=== PATIENT | female | born 1955 | race Caucasian/White ===

== ENCOUNTER 2019-03-29 08:50 | Day surgery (SDC) | payer OTHER ==
[~2019-03-29] VITALS: Ht 165.1 cm; Wt 79.4 kg
[~2019-03-29 08:50] MED LIST: EZFE 200200 MG PO; THEREMS-M1 TAB PO
[2019-03-29 09:38] LABS: HEMATOCRIT 37.3 % (36.0-48.0); HEMOGLOBIN 12.2 g/dL (12-16); MCH 29.3 pg (26.0-34.0); MCHC 32.7 g/dL (31.0-37.0); MCV 89.4 fL (80.0-100.0); MEAN PLATELET VOLUME 9.3 fL (7.4-10.4); RBC 4.17 10x6/uL (4.00-5.40); RDW 12.4 % (11.5-14.5); WBC 5.5 10x3/uL (4.8-10.8)
[2019-03-29] MEDS ORDERED: CYANOCOBAL1000 MCG/4 SC (11:27)
[2019-03-29 11:28] VITALS: BP 109/62; Ht 165.1 cm; Wt 79.4 kg
--- NOTE | 2019-04-16 09:04 | OP ---
PATIENT NAME: LEATHA CHATTERJEE MEDICAL RECORD: [id number] :55 LOCATION:D.OPS ADMISSION DATE: SURGEON: SARA RIOS DATE OF OPERATION: 03/29/2019 SURGEON: Sara Rios DPM PREOPERATIVE DIAGNOSES: 1. Hallux abductovalgus, right foot. 2. Tailor's bunion, right foot. POSTOPERATIVE DIAGNOSES: 1. Hallux abductovalgus, right foot. 2. Tailor's bunion, right foot. PROCEDURES: 1. Vikash bunionectomy, right foot. 2. Exostectomy fifth metatarsal head. ANESTHESIA: Local with monitored anesthesia care. HEMOSTASIS: Pneumatic ankle tourniquet inflated to 250 mmHg. ESTIMATED BLOOD LOSS: Minimal. MATERIALS: One 2.5 mm [employer] screw, 3-0 Vicryl, 4-0 nylon. INJECTABLES: 20 cc of 0.5% bupivacaine plain. The patient has a longstanding history of pain associated with the right foot. She is here today for surgical correction. We have discussed the risks and benefits of the procedure. Complications were reviewed. All questions were answered. She was appropriately consented for the above-mentioned procedure. The patient was brought in the operating room and placed on the operating table in supine position. A timeout was called with Dr. Rios, who identified the patient, the surgical site, and the surgery to be performed. Once appropriate anesthesia was obtained, the foot was prepped and draped in the usual aseptic manner. The pneumatic ankle tourniquet was inflated to 250 mmHg on the well-padded right ankle. PROCEDURE #1: Vikash bunionectomy, right foot. Attention was directed to the dorsal aspect of the first metatarsophalangeal joint where a 6 cm curvilinear incision was made just medial to the extensor hallucis longus tendon. This incision was carried deep to soft tissue with care being taken to retract all vital neurovascular structures. All bleeders were cauterized along the way. The first intermetatarsal space was then entered utilizing both sharp and blunt dissection. The conjoined tendon of the abductor hallucis tendon was identified at the base of the proximal phalanx and it was sharply transected. Attention was then directed further proximally to the level of the fibular sesamoidal ligament. The fibular sesamoidal ligament was then sharply transected. Attention was then redirected to the dorsal aspect of the joint where the periosteum was reflected from the head of the first metatarsal and the base of OPERATIVE REPORT [id number] LEATHA CHATTERJEE the proximal phalanx, thus revealing the hypertrophied medial eminence of the first metatarsal. Utilizing a sagittal saw, the hypertrophied medial eminence was resected. Next, utilizing a sagittal saw, a V-shaped osteotomy was created in the head of the first metatarsal. This is a daloeqa-meb-lybixja osteotomy with the apex oriented distally. The capital fragment was translocated laterally and impacted upon the first metatarsal shaft. Next, utilizing supervisor rice milling's recommended technique, one 2.5-mm screw was placed across the osteotomy. All remaining overhanging bone from the medial aspect of the first metatarsal was resected with a bone saw. The surgical site was then irrigated with copious amounts of normal sterile saline via bulb syringe. The periosteum was then reapproximated and coapted using 3-0 Vicryl. The subQ was then reapproximated and coapted with 3-0 Vicryl. The skin was then reapproximated and coapted with 4-0 nylon. PROCEDURES #2: EXOSTECTOMY FIFTH METATARSAL OF THE RIGHT FOOT: Attention was now directed to the dorsal aspect of the fifth metatarsophalangeal joint where a 4-cm linear incision was made. This incision was carried deep to soft tissue with care being taken to retract all vital neurovascular structures. All bleeders were cauterized along the way. The periosteum was then reflected from the fifth metatarsophalangeal joint, thus exposing the hypertrophied lateral eminence of the fifth metatarsal head. Utilizing a sagittal saw, all hypertrophied bone was removed. All rough bone edges were smoothed with a rasp. The surgical site was then irrigated with copious amounts of normal sterile saline via bulb syringe. The periosteum was reapproximated and coapted with 3-0 Vicryl. The subQ was reapproximated and coapted with 3-0 Vicryl and the skin was reapproximated and coapted with 4-0 nylon. A dressing consisting of Xeroform, 4 x 4's, Kerlix, and Haresh bandage was applied to the right foot. The pneumatic ankle tourniquet was deflated and capillary refill time is immediate to all digits of the right foot. The patient tolerated the procedure and anesthesia well. She left the operating room with vital signs stable and capillary refill time intact. The patient was discharged home with instructions to ice and elevate the right foot. She was dispensed a boot to further help offload the foot. She has my cell phone number for any afterhours difficulties. She was provided with prescriptions for [place] 5/325 and Phenergan 25 mg. There were no complications with this procedure and we will follow up with her in 1 week. TRANSINT:[id number] Voice Confirmation ID: [id number] DOCUMENT ID: [id number] SARA RIOS at 0904 CC: [id number] DICTATION DATE: 03/29/19 1519 DX BOARD OPERATOR: 03/29/19 2316 [facility] 03/29/[address] [id number]
== END 2019-03-29 15:55 | disposition home or self-care (01) ==
LOC: D.OPS 08:50 → D.PAN 12:00 → D.OPS 15:55
PROVIDERS: Anesthesiology; ATTEND Podiatrist
DX: M20.11 Hallux valgus (acquired), right foot (principal); M21.621 Bunionette of right foot

== ENCOUNTER 2019-05-10 11:03 | Day surgery (SDC) | payer OTHER ==
[~2019-05-10] VITALS: Ht 165.1 cm; Wt 79.4 kg
--- NOTE | ~2019-05-10 | OP ---
PATIENT NAME: LEATHA CHATTERJEE MEDICAL RECORD: [id number] :55 LOCATION:D.OPS ADMISSION DATE: SURGEON: SARA RIOS DATE OF OPERATION: 05/10/2019 SURGEON: Sara Rios DPM PREOPERATIVE DIAGNOSES: 1. Hallux abductovalgus deformity, left foot. 2. Tailor's bunion, left foot. POSTOPERATIVE DIAGNOSES: 1. Hallux abductovalgus deformity, left foot. 2. Tailor's bunion, left foot. PROCEDURES: 1. Vikash bunionectomy, left foot. 2. Tailor's bunionectomy, left foot. ANESTHESIA: Local with monitored anesthesia care. HEMOSTASIS: Pneumatic ankle tourniquet inflated to 250 mmHg. ESTIMATED BLOOD LOSS: Minimal. MATERIALS: One 2.5 mm [employer] cannulated screw. INJECTABLES: 25 mL of 0.5% bupivacaine plain. The patient has a longstanding history of foot pain associated with the above-mentioned deformities. We have discussed the proposed procedure, risks and benefits were discussed. Complications were reviewed. All questions were answered. She was appropriately consented for the above-mentioned procedures. Of note, she underwent the exact same procedures in the right foot back in March and did quite well. DESCRIPTION OF THE PROCEDURE: The patient was brought to the operating room and placed on the operating table in supine position. A timeout was called with Dr. Rios, who identified the patient, surgical site, and surgery to be performed. Once appropriate anesthesia was obtained, the foot was prepped and draped in the usual aseptic manner. The pneumatic ankle tourniquet was inflated to 250 mmHg on the well-padded left ankle. PROCEDURE #1: Vikash bunionectomy. Attention was directed to the first metatarsophalangeal joint where a 6 cm linear incision was made just medial to the extensor hallucis longus tendon. This incision was carried deep through soft tissue with care being taken to retract all vital neurovascular structures. All bleeders were cauterized along the way. The first intermetatarsal space was then entered utilizing both sharp and blunt dissection, the conjoined tendon of the adductor hallucis tendon was identified at the base of the proximal phalanx and sharply transected. OPERATIVE REPORT [id number] LEATHA CHATTERJEE Attention was then directed further proximally to the level of the fibular sesamoidal ligament. This ligament was identified and sharply transected. Attention was then directed to the dorsal aspect of the first metatarsophalangeal joint where the periosteum was reflected from the head of the first metatarsal and the base of the proximal phalanx. The hypertrophied medial eminence of first metatarsal head was then resected with a sagittal saw. Next, utilizing a sagittal saw, a V-shaped osteotomy was created in the head of the first metatarsal. This was a through and tbmdiue-ncc-gxoprzm osteotomy with the apex oriented distally. The capital fragment was then translocated laterally and impacted upon the first metatarsal shaft. Next, utilizing manufacture's recommended technique, one 2.5-mm screw was placed across the osteotomy. All overhanging bone from the medial aspect of the first metatarsal was removed with the sagittal saw. The surgical site was then irrigated with copious amounts of normal sterile saline via bulb syringe. The periosteum was then reapproximated and coapted using 3-0 Vicryl, subQ was then reapproximated and coapted using 4-0 Vicryl and skin was reapproximated and coapted using 4-0 nylon. PROCEDURE 2: Ostectomy, fifth metatarsal head, left foot. Attention was directed to the fifth metatarsal head where a 3 cm linear incision was made. This incision carried deep to soft tissue with care being taken to retract all vital neurovascular structures. All bleeders were cauterized along the way. The periosteum was then reflected from the head of the fifth metatarsal, thus revealing the hypertrophied lateral eminence. Next, utilizing a sagittal saw, all hypertrophied bone was resected. All sharp bone edges smoothed with a rasp. The surgical site was then irrigated with copious amounts of normal sterile saline via bulb syringe. The periosteum was then reapproximated and coapted using 3-0 Vicryl. The subQ was then reapproximated and coapted using 4-0 Vicryl. Skin was reapproximated and coapted using 4-0 nylon. A dressing consisting of Xeroform, 4 x 4's, Kerlix, and Haresh bandage was applied to the left foot. The pneumatic ankle tourniquet was deflated and cap refill time is immediate to all digits of the left foot. The patient tolerated the procedure and anesthesia well. She left the operating room with vital signs stable and capillary refill time intact. The patient was discharged home with instructions to ice and elevate the left foot. She has a boot from previous foot surgery. She is to utilize that at all times to help offload the foot. She has my cell phone number for any afterhour difficulties and there were no complications with this procedure. TRANSINT:[id number] Voice Confirmation ID: [id number] DOCUMENT ID: [id number] SARA RIOS CC: [id number] DICTATION DATE: 05/10/191605 OSTRICH FARMER: 05/10/192240 [facility] [place] 05/10/19 [facility] [address] [place] [address]
[~2019-05-10 11:03] MED LIST changes: +CALCIUM 250+D T1 TAB PO; +CYANOCOBAL1000 MCG/4 SC
[2019-05-10 11:32] LABS: HEMATOCRIT 39.4 % (36.0-48.0); MCH 29.3 pg (26.0-34.0); MCV 88.7 fL (80.0-100.0); MEAN PLATELET VOLUME 9.1 fL (7.4-10.4); RBC 4.44 10x6/uL (4.00-5.40); RDW 12.5 % (11.5-14.5); WBC 8.6 10x3/uL (4.8-10.8)
[2019-05-10 12:02] VITALS: BP 131/62; Ht 165.1 cm; Wt 79.4 kg
== END 2019-05-10 17:04 | disposition home or self-care (01) ==
LOC: D.OPS 11:03 → D.PAN 13:00 → D.OPS 13:00
PROVIDERS: Anesthesiology; ATTEND Podiatrist
DX: M20.12 Hallux valgus (acquired), left foot (principal); M21.622 Bunionette of left foot